=== PATIENT | male | born 1960 | race Caucasian/White ===

== ENCOUNTER 2017-06-20 13:24 | Emergency (ER) | payer OTHER, SELFPAY ==
[2017-06-20 14:06] VITALS: BP 135/81; PULSE 109; RESP 20; TEMP 36.8; O2SAT 97; BMI 34.2
--- NOTE | 2017-06-20 14:30 | HMH.EDUTC ---
[facility] [place] Clinical Impression: Muscle spasm Low back pain Qualifiers: Chronicity: unspecified Back pain laterality: right Sciatica presence: unspecified whether sciatica present Qualified Code(s): M54.5 - Low back pain Disposition: Home, Self-Care Condition on Discharge: Good Instructions: DI for Chronic Pain -- Adult Additional Instructions: Follow up with family doctor in 24-48 hours if no improvement or worsening of symptoms REturn if needed Take medication as prescribed Straight to ER if any life threatening symptoms Prescriptions: Cyclobenzaprine HCl [Flexeril 10mg tablet] 10 mg PO TID PRN #20 tab PRN Reason: Muscle Spasm Etodolac [Etodolac 200mg Cap] 200 mg PO Q6 PRN #20 cap PRN Reason: Moderate Pain Referrals: Branden Alexandre MD [Primary Care Provider] - As needed (in 24-48 hours if no improvement or worsening of symptoms Follow up on Friday) Forms: Work/School Release Time of Disposition: 15:46 Medical Decision Making - Medical Records Medical records reviewed: Yes: I reviewed the patient's medical records. - Venkat Inquiry Pt receiving controlled substance: No Venkat was queried for this patient: No Vital Signs: 06/20/17 14:06 Temperature 98.2 F Temperature Source Temporal Artery Scan Pulse Rate [Right Brachial] 109 H Respiratory Rate 20 Blood Pressure [Right Arm] 135/81 Blood Pressure Mean [Right Arm] 99 Blood Pressure Source [Right Arm] Automatic Cuff Blood Pressure Position [Right Arm] Sitting 02 Sat by Pulse Oximetry 97 Oxygen Delivery Method Room Air Orders (Tests/Meds): ED MEDICATIONS Discontinued Medications Generic Name Dose Route Start Last Admin Trade Name Freq PRN Reason Stop Dose Admin Ketorolac Tromethamine 60 mg 06/20/17 14:42 06/20/17 14:59 Toradol 60mg/2ml Vial IM 06/20/17 14:43 60 mg ONCE ONE Administration Methylprednisolone Sodium Succinate 125 mg 06/20/17 14:42 06/20/17 14:59 Solu-Medrol 125mg/2ml Vial IM 06/20/17 14:43 125 mg ONCE ONE Administration - Radiology Data #1 Image Reviewed: Yes I have reviewed radiologist's interpretation Prominent multilevel degenerative changes of the lower thoracic and lumbar spine along with findings of mild muscle spasm - Reevaluation(s) Time: 14:44 Reevaluation #1: Medication Tordol discussed with Pharmacy ([facility]) [facility] [place] - General Stated complaint: Back spams Time Seen by Provider: 06/20/17 14:30 Mode of Arrival: Family Vehicle Source of Information: Patient Limitations: No Limitations Description of Symptoms (Recalled from Triage Doc. by RN): c/o back pain on right side x 1 month but alot worse since this am HEENT Symptoms (Recalled from RN notes): No Resp Symptoms (Recalled from RN notes): No Skin Symptoms (Recalled from RN notes): No MS Symptoms (Recalled from RN notes): Yes Functional Status (Recalled from RN notes): n/a - History of Present Illness Provider Complaint: Patient state that he has back problems State that about a month ago he slipped on ice and terry his back State that he has been having pain on and off ever since States that this morning his dog made a mess in the floor and he bent over to clean it up and he felt his back pull. States that ever since he has been having muscle spasms in his lower back area so he came in to get seen - Related Data Home Medications Medication Instructions Recorded Confirmed Aspirin [Aspir 81] 81 mg PO DAILY 06/20/17 06/20/17 Finasteride [Proscar 5mg Tablet] 5 mg PO DAILY 06/20/17 06/20/17 Lisinopril [Lisinopril 10mg Tab] 10 mg PO DAILY 06/20/17 06/20/17 Terazosin HCl [Hytrin 5mg Capsule] 5 mg PO DAILY 06/20/17 06/20/17 Previous Rx's Medication Instructions Recorded Cyclobenzaprine HCl [Flexeril 10mg 10 mg PO TID PRN #20 tab 06/20/17 tablet] Etodolac [Etodolac 200mg Cap] 200 mg PO Q6 PRN #20 cap 06/20/17 Allergies Allergy/AdvReac Type Severity Reaction Status Date / Jason
--- NOTE | 2017-06-20 14:37 | ED_ITS ---
[facility] [place]: Muscle spasm Low back pain Qualifiers: Chronicity: unspecified Back pain laterality: right Sciatica presence: unspecified whether sciatica present Qualified Code(s): M54.5 - Low back pain Disposition: Home, Self-Care Condition on Discharge: Good Instructions: DI for Chronic Pain -- Adult Additional Instructions: Follow up with family doctor in 24-48 hours if no improvement or worsening of symptoms REturn if needed Take medication as prescribed Straight to ER if any life threatening symptoms Prescriptions: Cyclobenzaprine HCl [Flexeril 10mg tablet] 10 mg PO TID PRN #20 tab PRN Reason: Muscle Spasm Etodolac [Etodolac 200mg Cap] 200 mg PO Q6 PRN #20 cap PRN Reason: Moderate Pain Referrals: Branden Alexandre MD [Primary Care Provider] - As needed (in 24-48 hours if no improvement or worsening of symptoms Follow up on Friday) Forms: Work/School Release Time of Disposition: 15:46 Medical Decision Making - Medical Records Medical records reviewed: Yes: I reviewed the patient's medical records. - Venkat Inquiry Pt receiving controlled substance: No Venkat was queried for this patient: No Vital Signs: 06/20/17 14:06 Temperature 98.2 F Temperature Source Temporal Artery Scan Pulse Rate [Right Brachial] 109 H Respiratory Rate 20 Blood Pressure [Right Arm] 135/81 Blood Pressure Mean [Right Arm] 99 Blood Pressure Source [Right Arm] Automatic Cuff Blood Pressure Position [Right Arm] Sitting 02 Sat by Pulse Oximetry 97 Oxygen Delivery Method Room Air Orders (Tests/Meds): ED MEDICATIONS Discontinued Medications Generic Name Dose Route Start Last Admin Trade Name Freq PRN Reason Stop Dose Admin Ketorolac Tromethamine 60 mg 06/20/17 14:42 06/20/17 14:59 Toradol 60mg/2ml Vial IM 06/20/17 14:43 60 mg ONCE ONE Administration Methylprednisolone Sodium Succinate 125 mg 06/20/17 14:42 06/20/17 14:59 Solu-Medrol 125mg/2ml Vial IM 06/20/17 14:43 125 mg ONCE ONE Administration - Radiology Data #1 Image Reviewed: Yes I have reviewed radiologist's interpretation Prominent multilevel degenerative changes of the lower thoracic and lumbar spine along with findings of mild muscle spasm - Reevaluation(s) Time: 14:44 Reevaluation #1: Medication Tordol discussed with Pharmacy ([facility]) [facility] [place] General Stated complaint: Back spams Time Seen by Provider: 06/20/17 14:30 Mode of Arrival: Family Vehicle Source of Information: Patient Limitations: No Limitations Description of Symptoms (Recalled from Triage Doc. by RN): c/o back pain on right side x 1 month but alot worse since this am HEENT Symptoms (Recalled from RN notes): No Resp Symptoms (Recalled from RN notes): No Skin Symptoms (Recalled from RN notes): No MS Symptoms (Recalled from RN notes): Yes Functional Status (Recalled from RN notes): n/a - History of Present Illness Provider Complaint: Patient state that he has back problems State that about a month ago he slipped on ice and terry his back State that he has been having pain on and off ever since States that this morning his dog made a mess in the floor and he bent over to clean it up and he felt his back pull. States that ever since he has been having muscle spasms in his lower back area so he came in to get seen - Related D
--- NOTE | 2017-06-20 14:37 | XR_ITS ---
XR lumbar spine 2-3V COMPARISON: None HISTORY: Low back pain TECHNIQUE: AP lateral and oblique views and spot view lumbosacral junction FINDINGS: There is straightening of normal curvature. There is prominent multilevel degenerative changes with anterior ossific spurring most prominent at the T 1011 and T11-12 levels thoracic spine. There is disc space narrowing at L3-4 and L4-5 levels of the lumbar spine with prominent anterior ossific spurring at the L4-5 level. There are hypertrophic facet changes at L4-5 and L5-S1 levels. There is no pars defect. The SI joints per normal except for a small focal sclerotic lesion left iliac bone on the iliac side of the SI joint probably a bone island. IMPRESSION: Prominent multilevel degenerative changes of the lower thoracic and lumbar spine along with findings of mild muscle spasm
[2017-06-20 15:55] VITALS: BP 132/86; PULSE 100; RESP 20; TEMP 36.6; O2SAT 97
== END 2017-06-20 15:57 | disposition home or self-care (01) ==
PROVIDERS: Emergency Provider Nurse Practitioner; Family Provider Family Medicine; PCP Family Medicine
DX: M62.838 Other muscle spasm (principal); M54.5 Low back pain; Z79.82 Long term (current) use of aspirin; I10 Essential (primary) hypertension
CPT/HCPCS: 72100; 96372; 99202

== ENCOUNTER 2017-07-24 10:30 | Outpatient (RCR) | payer OTHER, SELFPAY ==
--- NOTE | 2017-06-26 10:10 | HMH.PTOPEV ---
Rehab Outpatient Evaluation Rehab OP Evaluation Start: 06/26/17 09:34 Freq: Status: Active Protocol: Document 06/26/17 09:34 MECHE (Rec: 06/26/17 10:10 MECHE [id number]) Electronically Signed By Tristin Langford, PT 06/26/17 09:34 Outpatient Therapy Subjective History Subjective History Pt presents w/ acute onset L sided LBP beginning on 06/20/17. Pt reports insidious onset with pain radiating from L sided low back to L thigh area . Pt reports h/o similiar episodes, and gained relief with traction. Chief Complaint Pain Spasms Stiff Symptom Type Ache Throb Sharp Dull Symptoms Relieved By Rest/Positioning Heat Prescription Meds Symptoms Aggravated By Sitting Twisting Lifting Prior Functional Limitations None Current Functional Limitations Lifting Driving Sitting Bending/Stooping Symptom Description Constant but Variable Level of pain today (0-10) 3 Pain scale - at its best (0-10) 3 Pain scale - at its worst (0-10) 6 Lumbopelvic Eval Posture Thoracic Spine Posture Standing Position Neutral Lumbar Spine Posture Standing Position Flattened Assistive device Assistive Devices None / NA Gait Observation General Gait Pattern Observation Antalgic Gait Palapation tenderness left lumbar spinal tenderness Yes: 3/4 paraspinal tenderness Yes: 3/4 Lumbar/Sacral Palpation Findings Tenderness Accessory Movement T-spine Vertebrae Accessory Movements [place] that [place]it Symptoms L3 bilateral L4 bilateral L5 bilateral Range of Motion Lumbar Spine Active Flexion Range of 0-30 Motion (degrees) Lumbar Spine Active Extension Range of 0-15 Motion (degrees) Left Lumbar Spine Lateral Flexion Active 0-5 Range of Motion (degrees) Right Lumbar Spine Lateral Flexion 0-5 Active Range of Motion (degrees) Lumbar Spine ROM Limitations Pain Manual Muscle Test Bilateral Knee Extension Strength Grade 5 Normal Knee Flexion Strength Grade 5 Normal Hip Flexion Strength Grade 4 Good Extensor Halluc
== END 2017-07-24 10:31 | disposition home or self-care (01) ==
LOC: PT 10:30
PROVIDERS: Family Provider Family Medicine; PCP Family Medicine; Visit Provider Family Medicine
DX: S39.012A Strain of muscle, fascia and tendon of lower back, initial encounter (principal)
CPT/HCPCS: 97010; 97012; 97014; 97035; G0283

== ENCOUNTER → 2017-11-06 10:20 | Outpatient (CLI) | payer BC, SELFPAY ==
[2017-11-06 12:36] LABS: Prostate Specific Ag, Diagnost 1.87 ng/mL (0.0-4.0)
== END ==
PROVIDERS: Visit Provider Urology
DX: N40.0 Benign prostatic hyperplasia without lower urinary tract symptoms (principal)
CPT/HCPCS: 36415; 84153

== ENCOUNTER 2019-09-01 11:08 | Observation (INO) | payer BC, SELFPAY ==
[2019-09-01 11:42] VITALS: BP 127/76; RESP 20; TEMP 36.6; O2SAT 99; BMI 36.2
--- NOTE | 2019-09-01 11:43 | HMH.PHAINT ---
MEDICATION RECONCILIATION COMPLETED ON PATIENT USING EXTERNAL FILL HISTORY FROM PHARMACY AND LIST FROM MD OFFICE. -ELIDIA RIGGINSD
--- NOTE | 2019-09-01 12:35 | CT_ITS ---
PROCEDURE: CT ABDOMEN PELVIS W CON CLINICAL INDICATION: abdominal pain Right lower quadrant pain with nausea and vomiting COMPARISON: No exams were available for comparison TECHNIQUE: IV Contrast: 75ML OPTIRAY 350 Oral Contrast 20ml Gastroview Axial images obtained with sagittal and coronal reformats. All CT scans at the facility use one or more dose reduction, viz: automated exposure control, ma/kV adjustment per patient size (including targeted exams where dose is matched to indication, i.e. head), or iterative reconstruction technique. FINDINGS: LOWER THORAX: Lung bases are clear. There is some minimal calcification of the aortic valve. ABDOMEN & PELVIS: The liver, spleen, adrenal glands, and pancreas have an unremarkable appearance. No renal or ureteral calculi. There is an exophytic isodense the projecting off the superior pole of the left kidney. This is approximately 16 mm. The density is indeterminate. Nonemergent ultrasound may be of further value to determine if this is cystic or solid. The appendix is not clearly delineated. There is no evidence to suggest appendicitis. The colon is thickened beginning abruptly in the proximal ascending colon involving the ascending, transverse, descending colon, and sigmoid colon consistent with colitis. There are few diverticula within the colon but no evidence of diverticulitis. The prostate is enlarged at 5.8 by 6.4 cm. There are degenerative changes of the hips and lumbar spine. A sclerotic focus is present in the left ilium posteriorly nonspecific. IMPRESSION: 1. Moderate thickening of the colon as described above consistent with colitis 2. Indeterminate left adrenal nodule. Nonemergent ultrasound initially suggested further evaluation. 3. Enlarged prostate Dictated by: Jens Riggs MD 09/01/2019 16:10 Electronically signed by Jens Riggs MD in [place] 09/01/2019 16:10
--- NOTE | 2019-09-01 12:37 | HMH.HP ---
*Chief complaint: abdominal pain *History of present illness: Mr. Franco Bernardo is a 58-year-old male with a history of hypertension and prostate issues who presented to the office [facility] this a.m. complaining of lower abdominal pain. He states he was at work, went home, and then had some nausea and vomiting, with increasing abdominal pain. He thus presented to the office. With evaluation in the office he was noted to be afebrile with a blood pressure of 122/78. Physical assessment revealed a tender right lower quadrant without guarding. Abdomen was soft and he had positive bowel sounds. Urine showed a trace of blood and was otherwise negative. CBC showed a white blood cell count of 10,000 with a hemoglobin of 13.9 hematocrit of 40.5, granulocytes of 86.8% lymphocytes of 10.2%. Initially he was to go to radiology for CT scan to rule out appendicitis and kidney stone. His nausea progressed and he was given Zofran 4 mg IM. He appeared pale and extremely uncomfortable. He was assessed by Dr. Tovar as well. He was then admitted for further evaluation and treatment and will have a CT scan of his abdomen. Patient denies any chest pain or upper respiratory symptoms. He has had a diminished urinary output since this morning. He does have some shortness of breath with the pain. He has been seen by urology in the past for prostrate enlargement and elevated PSA. Biopsies were all negative. He has no previous history of kidney stones or surgeries. [facility] History Medical History: Reports:: Hyperlipidemia, Hypertension Denies:: Cancer, Diabetes Mellitus Type 1, Diabetes Mellitus Type 2, Internal Pacemaker, MRSA *Have you ever received a pneumonia vaccine?: No *Have you received a flu vaccine this season?: Yes Other Medical History: Reports: Arthritis Other Surgeries: No: Pacemaker Amputation: No Fractures: Yes - *Social History Educational Level: Completed High School Smoking Status: Never smoker Alcohol Intake: never *Occupational Status:: employed Housing: house Household Members: spouse *Travel in the last 8 weeks: None Family Hx:: Cancer, Diabetes, Stroke, Alcoholism Review of Systems - Constitutional Denies fever(s) - ENT Denies ear pain, Denies headache(s), Denies sore throat - *Cardiovascular Reports shortness of breath, Denies chest pain - *Respiratory Denies chest congestion, Denies cough Comments: shortness of breath with the pain - *Gastrointestinal Reports abdominal pain, Reports nausea, Reports vomiting, Denies bloating, Denies change in bowel habits, Denies vomiting blood - *Genitourinary Reports difficulty urinating, Reports blood in urine, Reports decreased urination (dribbling), Denies painful urination - *Musculoskeletal Denies abnormal walking, Denies joint pain, Denies body aches - *Neurologic Denies frequent falls, Denies headache(s) Meds Home Medications Medication Instructions Recorded Confirmed Type Aspirin [Aspir 81] 81 mg PO DAILY 06/20/17 09/01/19 History Finasteride [Proscar 5mg Tablet] 5 mg PO DAILY 06/20/17 09/01/19 History Terazosin HCl [Hytrin 5mg Capsule] 5 mg PO HS 06/20/17 09/01/19 History lisinopriL [Lisinopril 10mg Tab] 10 mg PO DAILY 06/20/17 09/01/19 History Allergies Allergy/AdvReac Type Severity Reaction Status Date / Time No Known Allergies Allergy Verified 11/05/18 11:29 Exam Vital signs and Labs for Last 24 Hours: Temp Resp BP Pulse Ox 97.8 F 20 127/76 99 09/01/19 11:42 09/01/19 11:42 09/01/19 11:42 09/01/19 11:42 I & O for Last 24 hours: Intake & Output 08/30/19 08/31/19 09/01/19 09/02/19 11:59 11:59 11:59 11:59 Weight 282 lb 5 oz - Constitutional Comments: appears to be uncomfortable with abdominal pain and nausea - *Routine HEENT Exam Head: Present: normocephalic, atraumatic Eye: Present: PERRL. Absent: conjunctival icterus, scleral injection ENT: Present: mucous membranes moist - *Routine
[2019-09-01 13:23] LABS: Chloride 101 mmol/L (98-107); Sodium 134 mmol/L (136-145)
[2019-09-01 13:24] LABS: Basophils % 0.2 % (0.1-2.0); Eosinophils % 0.1 % (0.1-12.0); Hematocrit 41.9 % (42.0-52.0); Hemoglobin 14.3 g/dL (14.1-18.0); Lymphocytes # 0.7 K/mm3 (0.7-4.5); Lymphocytes % 6.9 % (10-50); Mean Corpuscular HGB Conc 34.1 g/dL (31.8-35.4); Mean Corpuscular Hemoglobin 30.5 pg (27.0-31.2); Mean Corpuscular Volume 89.3 fl (80-94); Mean Platelet Volume 8.6 fl (7.4-10.4); Monocytes # 0.3 K/mm3 (0.1-1.0); Monocytes % 2.6 % (1.7-9.3); Neutrophils # 9.7 K/mm3 (1.8-7.8); Neutrophils % 90.2 % (37.0-80.0); Platelet Count 177 K/mm3 (142-424); Red Blood Count 4.69 M/mm3 (4.60-6.20); White Blood Count 10.7 K/mm3 (4.8-10.8)
[2019-09-01 13:25] LABS: Blood Urea Nitrogen 21 mg/dl (9-20); Creatinine Clearance Estimated 206 mL/min (50-200); Estimated Glomerular Filt Rate 115 ml/min (>60); GFR (African American) 140 ML/MIN (>60)
[2019-09-01 13:26] LABS: Alanine Aminotransferase 39 U/L (12-78); Albumin Level 4.2 g/dl (3.5-5.0); Albumin/Globulin Ratio 1.6 (1.1-1.8); Alkaline Phosphatase 59 U/L (38-126); Aspartate Amino Transferase 42 U/L (17-59); Bilirubin,Total 0.7 mg/dl (0.2-1.3); Carbon Dioxide 27 mmol/L (22.0-30.0); Globulin 2.6 g/dL (1.3-3.2); Glucose 149 mg/dl (74-100); MANUAL DIFFERENTIAL MANUAL DIFFERENTIAL (MANUAL DIFF); Total Protein,Serum 6.8 g/dl (6.3-8.2)
[2019-09-01 13:44] LABS: Lymphocytes % 8 % (10-50); Monocytes % 2 % (2-9); Neutrophils % 90 % (42-76); Platelet Estimate Normal; RBC Morphology Normal; Total Cells Counted 100
--- NOTE | 2019-09-01 15:38 | HMH.PHAVTE ---
[facility] Pharmacy VTE Monitoring - Patient Demographics Admission date: 09/01/19 Report Date: 09/01/19 Time: 15:38 Allergies/Adverse Reactions: Patient Allergies No Known Allergies Allergy (Verified 11/05/18 11:29) Height: 1.88 m Weight: 128.055 kg Patient Problems: Current Active Problems Abdominal pain (Acute) Nausea and vomiting (Acute) Hypertension (Chronic) Enlarged prostate (Chronic) - VTE Risk Labs: VTE Related Lab Results Hgb 14.3 g/dL (14.1-18.0) 09/01/19 11:45 Hct 41.9 % (42.0-52.0) L 09/01/19 11:45 Plt Count 177 K/mm3 (142-424) 09/01/19 11:45 BUN 21 mg/dl (9-20) H 09/01/19 11:45 Creatinine 0.70 mg/dl (0.66-1.25) 09/01/19 11:45 Estimated Creat Clear 206 mL/min (50-200) 09/01/19 11:45 Was VTE Risk Assessment Performed: Yes VTE Score: 2 VTE Risk Level: Very Low Risk - Prophylaxis VTE Prophylaxis Ordered?: Yes Types of VTE Prophylaxis: TEDS Knee High Location of Applied Device: Bilateral Lower Extremeties - VTE Diagnosis Confirmed Treatment or plan recommended: Continue Current Treatment
[2019-09-01 15:53] VITALS: BP 133/79; PULSE 62; RESP 18; TEMP 36.8; O2SAT 98
--- NOTE | 2019-09-01 17:29 | PC.NURSE ---
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 IV is infusing in LAC, no signs of infiltration noted, at bedside, vss, no s/s of distress noted, will continue to monitor.
--- NOTE | 2019-09-01 19:12 | PC.NURSE ---
report given to siddhartha
[2019-09-01 20:00] VITALS: BP 139/80; PULSE 63; RESP 17; TEMP 36.6; O2SAT 94
[2019-09-02 04:00] VITALS: BP 127/68; PULSE 94; RESP 16; TEMP 36.8; O2SAT 95
[2019-09-02 07:26] VITALS: BP 121/68; PULSE 69; RESP 16; TEMP 36.8; O2SAT 96
[2019-09-02 07:56] VITALS: BMI 36.7
--- NOTE | 2019-09-02 08:37 | HMH.ACPN2 ---
Internal Medicine - PN: Subj *Date: 09/02/19 *Time: 08:37 Interval history: Patient is feeling better today. His abdominal pain has improved. He did have a loose stool this morning. He states he had some dysuria the first time he urinated, but this has resolved. He was able to rest off and on throughout the night. He still got nauseated trying to eat breakfast this morning. Exam Vital signs and Labs for Last 24 Hours: Temp Pulse Resp BP Pulse Ox 98.2 F 69 16 121/68 96 09/02/19 07:26 09/02/19 07:26 09/02/19 07:26 09/02/19 07:26 09/02/19 07:26 Laboratory Results - last 24 hr 09/01/19 11:45: WBC 10.7, RBC 4.69, Hgb 14.3, Hct 41.9 L, MCV 89.3, MCH 30.5, MCHC 34.1, RDW 13.0, Plt Count 177, MPV 8.6, Neut % (Auto) 90.2 H, Lymph % (Auto) 6.9 L, Harper % (Auto) 2.6, Eos % (Auto) 0.1, Baso % (Auto) 0.2, Neut # (Auto) 9.7 H, Lymph # (Auto) 0.7, Harper # (Auto) 0.3, Eos # (Auto) 0.0, Baso # (Auto) 0.0, Total Counted 100, Neutrophils % (Manual) 90 H, Lymphocytes % (Manual) 8 L, Monocytes % (Manual) 2, Platelet Estimate Normal, RBC Morphology Normal 09/01/19 11:45: Sodium 134 L, Potassium 4.0, Chloride 101, Carbon Dioxide 27, Anion Gap 10.0, BUN 21 H, Creatinine 0.70, Estimated Creat Clear 206, Estimated GFR 115, Est GFR ( Amer) 140, Glucose 149 H, Calcium 9.0, Total Bilirubin 0.7, AST 42, ALT 39, Alkaline Phosphatase 59, Total Protein 6.8, Albumin 4.2, Globulin 2.6, Albumin/Globulin Ratio 1.6 I & O for Last 24 hours: Intake & Output 08/30/19 08/31/19 09/01/19 09/02/19 11:59 11:59 11:59 11:59 Intake Total 2644 / 2644 Output Total 1100 / 1100 Balance 1544 / 1544 Weight 282 lb 5 oz 286 lb 7 oz Radiology Reports for the Last 24 Hours: Abdominal CT 1. Moderate thickening of the colon as described above consistent with colitis 2. Indeterminate left adrenal nodule. Nonemergent ultrasound initially suggested further evaluation. 3. Enlarged prostate - Constitutional no acute distress - *Routine Respiratory Exam Present: CTA bilaterally - *Routine Cardiovascular Exam Present: RRR - *Routine Abdominal Exam Present: soft, normoactive bowel sounds. Absent: tenderness - *Routine Extremities Exam Absent: cyanosis, clubbing, edema - *Routine Skin Exam Present: warm. Absent: rash - *Routine Neurological Exam Present: alert, oriented X3 Assessment and Plan (1) Colitis Current visit: Yes Status: Acute Category: Medical Code(s): K52.9 - Noninfective gastroenteritis and colitis, unspecified (2) Abdominal pain Current visit: Yes Status: Acute Category: Medical Code(s): R10.9 - Unspecified abdominal pain (3) Nausea and vomiting Current visit: Yes Status: Acute Category: Medical Code(s): R11.2 - Nausea with vomiting, unspecified (4) Hypertension Current visit: Yes Status: Chronic Category: Medical Code(s): I10 - Essential (primary) hypertension (5) Enlarged prostate Current visit: Yes Status: Chronic Category: Medical Code(s): N40.0 - Benign prostatic hyperplasia without lower urinary tract symptoms (6) Adrenal nodule Current visit: Yes Status: Acute Category: Medical Code(s): E27.8 - Other specified disorders of adrenal gland - Assessment and plan all Dx Assessment and Plan for all problems:: Patient was started on IV antibiotics yesterday after CT showed findings of colitis. He is improving. We will continue IV antibiotics. Will discuss further care with Dr. Tovar.
[2019-09-02 15:05] VITALS: BP 132/81; PULSE 82; RESP 18; TEMP 36.4; O2SAT 99
[2019-09-02 15:48] LABS: Adenovirus F 40/41, stool Not Detected (NotDetected); Astrovirus Not Detected (NotDetected); Campylobacter Not Detected (NotDetected); Clostridium Difficile A/B, PCR Not Detected (NotDetected); Cryptosporidium Not Detected (NotDetected); Cyclospora Cayetanesis Not Detected (NotDetected); Entamoeba histolytica Not Detected (NotDetected); Enteroaggregative E coli Not Detected (NotDetected); Enteropathogenic E coli Not Detected (NotDetected); Enterotoxigenic E coli Not Detected (NotDetected); Giardia lamblia Not Detected (NotDetected); Norovirus Not Detected (NotDetected); Plesimonas Shigalloides, PCR Not Detected (NotDetected); Rotavirus A Not Detected (NotDetected); Salmonella, PCR Not Detected (NotDetected); Sapovirus Not Detected (NotDetected); Shiga-like toxin E coli Not Detected (NotDetected); Shigella Enterovasive E coli Not Detected (NotDetected); Vibrio Cholerae Not Detected (NotDetected); Vibrio, PCR Not Detected (NotDetected); Yersinia Entercolitica, PCR Not Detected (NotDetected)
--- NOTE | 2019-09-02 18:07 | PC.NURSE ---
Patient has not complained of pain for duration of shift, has showered and performed most ADL's with minimal assistance, patient VSS, able to ambulate as needed, patient did complain of some dizziness and nausea early in the day but said it was relieved by position changes. has remained at bedside, patient has not shown signs of distress. Will contiune to monitor
[2019-09-02 19:56] VITALS: BP 114/68; PULSE 75; RESP 16; TEMP 36.6; O2SAT 99
[2019-09-02 21:19] VITALS: O2SAT 99
[2019-09-03] VITALS (17 sets, daily range): BP systolic 106–149; BP diastolic 58–97; PULSE 61–86; RESP 14–20; TEMP 36.6–37.1; O2SAT 92–100; BMI 33.3
--- NOTE | 2019-09-03 03:46 | PC.NURSE ---
NO ACUTE CHANGES FROM PREVIOUS ASSESSMENT.PT HAS RESTED WELL DURING THE NIGHT,HAS NOT REQUIRED ANY PAIN MEDICINES,IV INFUSING WITHOUT DIFF.WILL CONTINUE TO MONITOR
--- NOTE | 2019-09-03 08:25 | HMH.ACPN2 ---
Internal Medicine - PN: Subj *Date: 09/03/19 *Time: 08:25 Interval history: Patient states he feels much better today. His abdominal pain has resolved and he has been up moving around his room. He tolerated a diet without any nausea. He is still having some loose stools, but is anxious to go home. Exam Vital signs and Labs for Last 24 Hours: Temp Pulse Resp BP Pulse Ox 97.8 F 77 16 139/97 H 95 09/03/19 03:59 09/03/19 03:59 09/03/19 03:59 09/03/19 03:59 09/03/19 03:59 Laboratory Results - last 24 hr 09/02/19 15:43: Stl Aeromonas (PCR) Not detected, Stl C. cayetanensis PCR Not detected, Stool Rotavirus (PCR) Not detected, Stl Adenov F 40/41 PCR Not detected, Stool Astrovirus (PCR) Not detected, Stool Campylobacter PCR Not detected, Stl C.difficile Tox PCR Not detected, Stool Cryptosporidium PCR Not detected, Stl E.coli Shiga Tox PCR Not detected, Stool E coli O157 PCR Not detected, Stl Enterotoxigenic E PCR Not detected, Stool EPEC (PCR) Not detected, Stool EAEC (PCR) Not detected, Stl E. histolytica PCR Not detected, Stool Giardia Lamblia PCR Not detected, Stool Salmonella PCR Not detected, Stool Sapovirus (PCR) Not detected, Stl P. shigelloides PCR Not detected, Stl Shigella/EIEC PCR Not detected, St Y.enterocolitica PCR Not detected, Stool Vibrio (PCR) Not detected, Stl Vibrio cholerae PCR Not detected, Stl Norovirus GI/GII PCR Not detected I & O for Last 24 hours: Intake & Output 08/31/19 09/01/19 09/02/19 09/03/19 11:59 11:59 11:59 11:59 Intake Total 2644 / 2644 3592 / 3592 Output Total 1100 / 1100 Balance 1544 / 1544 3592 / 3592 Weight 282 lb 5 oz 286 lb 7 oz 259 lb 15.999 oz - Constitutional no acute distress - *Routine Respiratory Exam Present: CTA bilaterally - *Routine Cardiovascular Exam Present: RRR - *Routine Abdominal Exam Present: soft, normoactive bowel sounds. Absent: tenderness - *Routine Extremities Exam Absent: cyanosis, clubbing, edema - *Routine Skin Exam Present: warm. Absent: rash - *Routine Neurological Exam Present: alert, oriented X3 Assessment and Plan (1) Colitis Current visit: Yes Status: Acute Category: Medical Code(s): K52.9 - Noninfective gastroenteritis and colitis, unspecified (2) Abdominal pain Current visit: Yes Status: Acute Category: Medical Code(s): R10.9 - Unspecified abdominal pain (3) Nausea and vomiting Current visit: Yes Status: Acute Category: Medical Code(s): R11.2 - Nausea with vomiting, unspecified (4) Hypertension Current visit: Yes Status: Chronic Category: Medical Code(s): I10 - Essential (primary) hypertension (5) Enlarged prostate Current visit: Yes Status: Chronic Category: Medical Code(s): N40.0 - Benign prostatic hyperplasia without lower urinary tract symptoms (6) Adrenal nodule Current visit: Yes Status: Acute Category: Medical Code(s): E27.8 - Other specified disorders of adrenal gland - Assessment and plan all Dx Assessment and Plan for all problems:: Diarrhea panel was negative. Possible discharge home today. GI has been consulted to see patient before discharge.
[2019-09-03 08:43] LABS: Basophils % 0.4 % (0.1-2.0); Eosinophils % 0.6 % (0.1-12.0); Hematocrit 39.4 % (42.0-52.0); Hemoglobin 13.3 g/dL (14.1-18.0); Lymphocytes # 1.3 K/mm3 (0.7-4.5); Lymphocytes % 23.8 % (10-50); Mean Corpuscular HGB Conc 33.8 g/dL (31.8-35.4); Mean Corpuscular Hemoglobin 30.8 pg (27.0-31.2); Mean Corpuscular Volume 90.9 fl (80-94); Mean Platelet Volume 7.9 fl (7.4-10.4); Monocytes # 0.2 K/mm3 (0.1-1.0); Monocytes % 3.9 % (1.7-9.3); Neutrophils # 3.9 K/mm3 (1.8-7.8); Neutrophils % 71.2 % (37.0-80.0); Platelet Count 169 K/mm3 (142-424); Red Blood Count 4.33 M/mm3 (4.60-6.20); Red Cell Distribution Width 13.1 % (11.5-17.5); White Blood Count 5.5 K/mm3 (4.8-10.8)
[2019-09-03 08:59] LABS: Chloride 105 mmol/L (98-107); Potassium 3.8 mmoL/L (3.5-5.1); Sodium 137 mmol/L (136-145)
[2019-09-03 09:02] LABS: Anion Gap 7.8 mEq/L (5-15); Blood Urea Nitrogen 16 mg/dl (9-20); Calcium 8.1 mg/dl (8.4-10.2); Carbon Dioxide 28 mmol/L (22.0-30.0); Creatinine Clearance Estimated 147 mL/min (50-200); Estimated Glomerular Filt Rate 86 ml/min (>60); GFR (African American) 105 ML/MIN (>60); Glucose 131 mg/dl (74-100)
--- NOTE | 2019-09-03 11:06 | PC.NURSE ---
received call from preop saying to only give 1 fleets enema
--- NOTE | 2019-09-03 13:39 | HMH.ANESCL ---
[facility] Anesthesia Checklist - Patient Identification Patient Identification: Arm Band, Verbal (Name & ) - Structural Data Admitted From: Inpatient Planned Operative Procedure/s: Flexible sigmoidoscopy Consent for Planned Operative Procedure(s) Verified: Yes Verified Documents: Surgical Consent, History and Physical - NPO Status Verified Time NPO: 00:00 - Chart Verification Results Verified: CBC, BMP - Additional verifications Anesthesia Reactions: No - Airway Assessment C-Spine Mobility Assessed: Yes TMJ Mobility Assessed: Yes Dentition: Poor Dentition (Missing teeth) - Neurological Assessment Level of Consciousness: Awake, Alert, Appropriate, Follows Commands Hx Seizures: No Numbness or tingling in extremities: No - Anesthesia Plan Anesthesia Risk discussed: Yes Anesthesia Plan: Verified ASA Class: III Anesthesia Type: MAC [facility] History I have reviewed the patient's past medical history: Yes Medical History: Reports:: Hyperlipidemia, Hypertension Denies:: Cancer, Diabetes Mellitus Type 1, Diabetes Mellitus Type 2, Internal Pacemaker, MRSA *Have you ever received a pneumonia vaccine?: No *Have you received a flu vaccine this season?: Yes Other Medical History: Reports: Arthritis Anesthesia experience/problems:: none Other Surgeries: Yes: Colonoscopy. No: Pacemaker Amputation: No Fractures: Yes Comment: Right thumb pinning - *Social History Educational Level: Completed High School Smoking Status: Never smoker Alcohol Intake: never Substance Use Type: denies use *Occupational Status:: employed Housing: house Household Members: spouse *Travel in the last 8 weeks: None Family Hx:: Cancer, Diabetes, Stroke, Alcoholism
--- NOTE | 2019-09-03 13:46 | HMH.PROC ---
[facility] Procedure Note Procedure Note:: Colonoscopy Procedure Report: Colonoscopy with cold biopsies Endoscopist: Mihir Cruz II, MD Referring physician: Nikunj Tovar MD/Elisabeth GODFREY Date of Procedure: September 03, 2019 Equipment: Olympus 180 variable stiffness pediatric colonoscope Sedation: MAC sedation Indication: Mr. Bernardo is a 58-year-old gentleman who presents with diarrhea and right lower quadrant abdominal pain. He did have a CT scan of the abdomen and pelvis that did show thickening abruptly in the proximal ascending colon involving the ascending, transverse descending and sigmoid consistent with colitis. There were a few diverticuli noted in the colon but no evidence of diverticulitis. The patient had an initial PCR gastrointestinal stool panel that was negative for microbial pathogens. His initial white blood cell count was 10.7/hemoglobin 13.9 and hematocrit 40.5. He had normal liver chemistries. He continues to have some right-sided abdominal discomfort. His last colonoscopy was 4 to 5 years ago. He reports no rectal bleeding or weight loss. Procedure: Prior to the procedure, a history and physical exam was performed, and patient's medications and allergies were reviewed. The risks, benefits and alternatives of the sedation and procedure were discussed with the patient. All questions were answered and informed consent was obtained. The patient was brought to the procedure room. Patient identification and proposed procedure were verified by the physician and the nurse. The patient was placed in a left lateral decubitus position and the scope was passed under direct vision. Throughout the procedure, the patient's blood pressure, pulse, and oxygen saturations were monitored continuously. The colonoscopy was accomplished without difficulty. The patient tolerated the procedure well. Findings: On digital rectal examination there was normal rectal tone. There were no external hemorrhoids. The prostate was 2-3+, smooth and symmetric without nodules. The colonoscope was introduced through the anal canal to the rectum and advanced to the cecum. The appendiceal orifice could not be identified because of brown liquid stool and the valve could be identified but very difficult to intubate the ileum because of the stool and unprepped cecum. Upon withdrawal, there was a diminutive polyp in the ascending and a second diminutive polyp in the descending colon. Both of these were removed via cold biopsy. There was no mucosal abnormalities identified in the cecum/ascending, transverse colon. There were scattered diverticuli throughout the descending and sigmoid colon (LEFT colon). There was some mild mucosal erythema of the sigmoid colon and cold biopsies were taken randomly from the sigmoid colon to rule out colitis. The rectum itself was normal. Upon retroflexion within the rectum there were grade 1 internal hemorrhoids. The preparation was fair throughout with [place] Preparation Score of 6 out of 9. The cecal time was 12 minutes. Impression: 1. Diminutive colonic polyps x2 2. Left-sided diverticulosis 3. Grade 1 internal hemorrhoids Plan: There was no clear evidence of colitis. I do feel that the colon was decompressed. The patient still has some right lower quadrant abdominal pain but does not have fever or elevated white blood cell count. I would begin to advance his diet and follow-up as outpatient as long as symptoms improved. I will have him use dicyclomine/Bentyl. I will follow-up the biopsies.
--- NOTE | 2019-09-03 14:21 | SUR.PHASEII ---
Report called to Ines on Med/Surg floor, transferred to room 214 per hospital bed. Pt ailin procedure well.
--- NOTE | 2019-09-03 16:21 | PC.NURSE ---
Since returning from having sigmoidoscopy pt has done well. No c/o pain. No loose stools since returning from floor. Tolerating low residue diet. Ambulates independently to bathroom w/ no safety concerns. remains at bedside. VSS. Will continue to monitor.
--- NOTE | 2019-09-03 18:58 | PC.NURSE ---
patient has done well no new complaints. vitals have remained stable. rings out as needed. independent in room will continue to monitor.
--- NOTE | 2019-09-03 19:10 | PC.NURSE ---
report given to alberto
--- NOTE | 2019-09-04 03:58 | PC.NURSE ---
PT. HAS NOT HAD A BM THIS SHIFT, ABD REMAINS DISTENDED. PT. HAS NOT C/O N/V/D, SOA, DIZZINESS OR PAIN.
[2019-09-04 04:00] VITALS: BP 126/75; PULSE 77; RESP 18; TEMP 36.4; O2SAT 92
[2019-09-04 05:00] VITALS: BMI 36.7
[2019-09-04 08:00] VITALS: BP 143/78; PULSE 99; RESP 14; TEMP 36.4; O2SAT 96
--- NOTE | 2019-09-04 09:18 | HMH.ACPN2 ---
Internal Medicine - PN: Subj *Date: 09/04/19 *Time: 09:18 Interval history: He is feeling well and anxious to be discharged. Some epigastric tenderness. Ate graham and eggs this AM. Stool is loose. Exam Vital signs and Labs for Last 24 Hours: Temp Pulse Resp BP Pulse Ox 97.6 F 99 H 14 143/78 H 96 09/04/19 08:00 09/04/19 08:00 09/04/19 08:00 09/04/19 08:00 09/04/19 08:00 I & O for Last 24 hours: Intake & Output 09/01/19 09/02/19 09/03/19 09/04/19 11:59 11:59 11:59 11:59 Intake Total 2644 / 2644 4072 / 4072 1800 / 1800 Output Total 1100 / 1100 Balance 1544 / 1544 4072 / 4072 1800 / 1800 Weight 282 lb 5 oz 286 lb 7 oz 259 lb 15.999 oz 286 lb 6 oz - *Routine HEENT Exam Head: Present: normocephalic Eye: Present: PERRL ENT: Present: mucous membranes moist - *Routine Respiratory Exam Present: CTA bilaterally - *Routine Cardiovascular Exam Present: RRR - *Routine Abdominal Exam Present: soft. Absent: tenderness - *Routine Extremities Exam Absent: edema Assessment and Plan (1) Colitis Current visit: Yes Status: Acute Category: Medical Code(s): K52.9 - Noninfective gastroenteritis and colitis, unspecified (2) Abdominal pain Current visit: Yes Status: Acute Category: Medical Code(s): R10.9 - Unspecified abdominal pain (3) Nausea and vomiting Current visit: Yes Status: Acute Category: Medical Code(s): R11.2 - Nausea with vomiting, unspecified (4) Hypertension Current visit: Yes Status: Chronic Category: Medical Code(s): I10 - Essential (primary) hypertension (5) Enlarged prostate Current visit: Yes Status: Chronic Category: Medical Code(s): N40.0 - Benign prostatic hyperplasia without lower urinary tract symptoms (6) Adrenal nodule Current visit: Yes Status: Acute Category: Medical Code(s): E27.8 - Other specified disorders of adrenal gland - Assessment and plan all Dx Assessment and Plan for all problems:: See med list. Added Dicyclomine. Cefdinir for 10 days. Follow-up this week.
--- NOTE | 2019-09-04 09:37 | HMH.PHAINT ---
DISCHARGE COUNSELING COMPLETED.
--- NOTE | 2019-09-04 10:23 | HMH.ACPN ---
Internal Medicine - PN: Subj *Date: 09/04/19 *Time: 10:23 Exam Vital signs and Labs for Last 24 Hours: Temp Pulse Resp BP Pulse Ox 97.6 F 99 H 14 143/78 H 96 09/04/19 08:00 09/04/19 08:00 09/04/19 08:00 09/04/19 08:00 09/04/19 08:00 I & O for Last 24 hours: Intake & Output 09/01/19 09/02/19 09/03/19 09/04/19 23:59 23:59 23:59 23:59 Intake Total 808 / 808 3792 / 3792 2476 / 2476 1440 / 1440 Output Total 600 / 600 500 / 500 Balance 208 / 208 3292 / 3292 2476 / 2476 1440 / 1440 Weight 128.055 kg 129.926 kg 117.934 kg 129.898 kg Assessment and Plan (1) Colitis Current visit: Yes Status: Acute Category: Medical Code(s): K52.9 - Noninfective gastroenteritis and colitis, unspecified (2) Abdominal pain Current visit: Yes Status: Acute Category: Medical Code(s): R10.9 - Unspecified abdominal pain (3) Nausea and vomiting Current visit: Yes Status: Acute Category: Medical Code(s): R11.2 - Nausea with vomiting, unspecified (4) Hypertension Current visit: Yes Status: Chronic Category: Medical Code(s): I10 - Essential (primary) hypertension (5) Enlarged prostate Current visit: Yes Status: Chronic Category: Medical Code(s): N40.0 - Benign prostatic hyperplasia without lower urinary tract symptoms (6) Adrenal nodule Current visit: Yes Status: Acute Category: Medical Code(s): E27.8 - Other specified disorders of adrenal gland The patient's infection will respond to the chosen ABx?: Yes Is the patient receiving the right drug, dose, and route?: Yes Could a more targeted ABx be ordered?: Yes (PATIENT IS BEING DISCHARGED ON CEFDINIR)
--- NOTE | 2019-09-06 14:33 | HMH.DCSUM ---
General - General Admission date:: 09/01/19 Discharge date: 09/04/19 HPI HPI: Mr. Franco Bernardo is a 58-year-old male with a history of hypertension and prostate issues who presented to the office [facility] this a.m. complaining of lower abdominal pain. He states he was at work, went home, and then had some nausea and vomiting, with increasing abdominal pain. He thus presented to the office. With evaluation in the office he was noted to be afebrile with a blood pressure of 122/78. Physical assessment revealed a tender right lower quadrant without guarding. Abdomen was soft and he had positive bowel sounds. Urine showed a trace of blood and was otherwise negative. CBC showed a white blood cell count of 10,000 with a hemoglobin of 13.9 hematocrit of 40.5, granulocytes of 86.8% and lymphocytes of 10.2%. Initially he was to go to radiology for CT scan to rule out appendicitis and kidney stone. His nausea progressed and he was given Zofran 4 mg IM. He appeared pale and extremely uncomfortable. He was assessed by Dr. Tovar as well. He was then admitted for further evaluation and treatment and will have a CT scan of his abdomen upon admission. Patient denies any chest pain or upper respiratory symptoms. He has had a diminished urinary output since this morning. He does have some shortness of breath with the pain. He has been seen by urology in the past for prostrate enlargement and elevated PSA. Biopsies were all negative. He has no previous history of kidney stones or surgeries. Hospital Course Hospital Course: On admission patient had CT of the abdomen/pelvis which showed evidence of colitis and no evidence of appendicitis and no kidney stone. He was started on IV antibiotics, IV fluids, pain medication and anti-emetics after which he did improve. Abdominal pain did slowly resolve. He did develop a diarrhea. Diarrhea panel was negative. He was tolerating his diet without nausea. He was seen by Dr. Cruz who performed a colonoscopy with findings of diminutive colonic polyps x2, left-sided diverticulosis, and grade 1 internal hemorrhoids. He found no clear evidence of a colitis. He noted that the patient still had some right lower quadrant abdominal pain without fever or elevated white blood cell count. He recommended to advance his diet and started him on Bentyl. On 09/04/2019 patient was feeling well and anxious to be discharged. He had some epigastric tenderness. His stool remained loose. He was felt stable to be discharged. On this date he was discharged home in stable and satisfactory condition. He was to continue with the Bentyl and cefdinir for 10 days. He was to follow-up with Dr. Tovar the following week. Other medicines as per medication discharge sheet. He was to continue with his usual diet as tolerated. Objective Vital signs: Temp Pulse Resp BP Pulse Ox 97.6 F 99 H 14 143/78 H 96 09/04/19 08:00 09/04/19 08:00 09/04/19 08:00 09/04/19 08:00 09/04/19 08:00 Narrative: Exam Vital signs and Labs for Last 24 Hours: Temp Pulse Resp BP Pulse Ox 97.6 F 99 H 14 143/78 H 96 09/04/19 08:00 09/04/19 08:00 09/04/19 08:00 09/04/19 08:00 09/04/19 08:00 I & O for Last 24 hours: Intake & Output 09/01/19 09/02/19 09/03/19 09/04/19 11:59 11:59 11:59 11:59 Intake Total 2644 / 2644 4072 / 4072 1800 / 1800 Output Total 1100 / 1100 Balance 1544 / 1544 4072 / 4072 1800 / 1800 Weight 282 lb 5 oz 286 lb 7 oz 259 lb 15.999 oz 286 lb 6 oz - *Routine HEENT Exam Head: Present: normocephalic Eye: Present: PERRL ENT: Present: mucous membranes moist - *Routine Respiratory Exam Present: CTA bilaterally - *Routine Cardiovascular Exam Present: RRR - *Routine Abdominal Exam Present: soft. Absent: tenderness - *Routine Extremities Exam Absent: edema Results Completed studies during hospitalization [Text1]: 09/01/19 11:45: WBC
== END 2019-09-04 10:45 | disposition home or self-care (01) ==
PROVIDERS: Internal Medicine Gastroenterology; Nurse Practitioner Family; Admitting Provider Family Medicine; PCP Family Medicine; Visit Provider Family Medicine
PROC: 0DJD8ZZ Inspection of Lower Intestinal Tract, Via Natural or Artificial Opening Endoscopic (ICD-10-PCS; CPT 45330; principal; 2019-09-03 14:15)
DX: K52.9 Noninfective gastroenteritis and colitis, unspecified (principal); K57.30 Diverticulosis of large intestine without perforation or abscess without bleeding; N40.0 Benign prostatic hyperplasia without lower urinary tract symptoms; I10 Essential (primary) hypertension; D12.2 Benign neoplasm of ascending colon; D12.4 Benign neoplasm of descending colon
CPT/HCPCS: 45380; 36415; 74177; 80048; 80053; 85007; 85025; 87507; G0378; J1335; Q9967

== ENCOUNTER → 2019-11-11 12:14 | Outpatient (CLI) | payer BC, SELFPAY ==
[2019-11-11 14:07] LABS: Prostate Specific Ag Screen 1.9 ng/ml (0.0-4.0)
== END ==
PROVIDERS: Visit Provider Urology
DX: Z12.5 Encounter for screening for malignant neoplasm of prostate (principal)
CPT/HCPCS: 36415; G0103

== ENCOUNTER 2020-09-20 18:50 | Emergency (ER) | payer BC, SELFPAY ==
[2020-09-20] VITALS (7 sets, daily range): BP systolic 116–129; BP diastolic 72–82; PULSE 61–92; RESP 18–20; TEMP 36.9; O2SAT 95–100; BMI 36.9
--- NOTE | 2020-09-20 19:17 | US_ITS ---
PROCEDURE INFORMATION: Exam: US Scrotum Exam date and time: 09/20/2020 7:17 PM Age: 59 years old Clinical indication: Scrotum pain; Patient HX: Testicular pain/swelling TECHNIQUE: Imaging protocol: Real-time ultrasound of the scrotum and contents with color Doppler and image documentation. Spectral waveform analysis of the bilateral testis was not performed by the cardiac cath lab radiology technologist who performed the study. COMPARISON: 1. SCRO US SCROTUM 01/03/2017 10:[address] ABDOMEN PELVIS W CON 09/01/2019 3:32:13 PM No other comparison studies were made available at the time of interpretation. FINDINGS: Right testicle: The right testis measures 3.2 x 4.2 x 3.3 cm. Vascularity of the testis is present based on color Doppler imaging. No sonographic findings to suggest torsion on this study. No testicular mass. Left testicle: The left testis measures 3.1 x 4.8 x 3.9 cm. Vascularity of the testis is present based on color Doppler imaging. No sonographic findings to suggest torsion on this study. No testicular mass. Epididymides: 1.2 cm right epididymal head cyst. The visualized portion of the epididymes appear symmetric in echogenicity otherwise. Scrotum: Bilateral large hydrocele, measuring 10.1 x 6.8 x 7.6 cm on the right and 10.6 x 7.3 x 5.6 cm on the left. Soft tissues: Nonspecific 2.1 x 0.8 cm right inguinal lymph node demonstrating a fatty hilum. IMPRESSION: Bilateral large hydrocele, measuring 10.1 x 6.8 x 7.6 cm on the right and 10.6 x 7.3 x 5.6 cm on the left. Other findings noted above. The interpretation of this study is based on the receipt of a total image number of [id number].
[2020-09-20 19:44] LABS: Basophils % 0.5 % (0.1-2.0); Eosinophils # 0.1 K/mm3 (0.0-0.4); Eosinophils % 0.8 % (0.1-12.0); Hematocrit 40.8 % (42.0-52.0); Hemoglobin 14.2 g/dL (14.1-18.0); Lymphocytes # 1.2 K/mm3 (0.7-4.5); Mean Corpuscular HGB Conc 34.9 g/dL (31.8-35.4); Mean Corpuscular Hemoglobin 29.9 pg (27.0-31.2); Mean Corpuscular Volume 85.7 fl (80-94); Mean Platelet Volume 8.4 fl (7.4-10.4); Monocytes # 0.3 K/mm3 (0.1-1.0); Monocytes % 3.9 % (1.7-9.3); Neutrophils # 5.5 K/mm3 (1.8-7.8); Neutrophils % 77.9 % (37.0-80.0); Platelet Count 191 K/mm3 (142-424); Red Blood Count 4.76 M/mm3 (4.60-6.20); Red Cell Distribution Width 13.4 % (11.5-17.5)
[2020-09-20 19:49] LABS: Chloride 104 mmol/L (98-107); Sodium 139 mmol/L (136-145)
[2020-09-20 19:50] LABS: Potassium 3.9 mmoL/L (3.5-5.1)
[2020-09-20 19:52] LABS: Alanine Aminotransferase 26 U/L (12-78); Albumin Level 4.1 g/dl (3.5-5.0); Albumin/Globulin Ratio 1.6 (1.1-1.8); Alkaline Phosphatase 54 U/L (38-126); Anion Gap 11.9 mEq/L (5-15); Aspartate Amino Transferase 25 U/L (17-59); Bilirubin,Total 0.6 mg/dl (0.2-1.3); Blood Urea Nitrogen 13 mg/dl (9-20); Carbon Dioxide 27 mmol/L (22.0-30.0); Creatinine Clearance Estimated 202 mL/min (50-200); Estimated Glomerular Filt Rate 115 ml/min (>60); GFR (African American) 139 ML/MIN (>60); Globulin 2.6 g/dL (1.3-3.2); Total Protein,Serum 6.7 g/dl (6.3-8.2)
[2020-09-20 19:53] LABS: Calcium 8.9 mg/dl (8.4-10.2); Glucose 108 mg/dl (74-100)
[2020-09-20 20:25] LABS: C-Reactive Protein 0.5 mg/L (0-4)
--- NOTE | 2020-09-20 20:32 | HMH.EDGENADL ---
ED Disposition Clinical Impression: Flank pain Abdominal pain Qualifiers: Abdominal location: lower abdomen, unspecified Qualified Code(s): R10.30 - Lower abdominal pain, unspecified Hydrocele Qualifiers: Hydrocele type: unspecified Qualified Code(s): N43.3 - Hydrocele, unspecified Disposition: Home, Self-Care Condition on Discharge: Good Instructions: DI for Abdominal Pain-Adult, DI for Hydrocele-Adult Additional Instructions: Tylenol 3 as needed for pain. Call your primary care doctor in the morning for further care. Call Dr. Iniguez tomorrow as well. Additional instructions for CONTROLLED SUBSTANCES: You have been prescribed a medication that is a controlled substance. Controlled substances include pain medications known as opiates and sedative nerve medications known as benzodiazepines. Tramadol, fioricet, and gabapentin are also controlled substances. Some common opiates include: Codeine (such as Tylenol #3) Hydrocodone (Vicodin, Lortab, Lorcet, [place]) Oxycodone (Percocet, Percodan, Oxycodone, Oxy IR) Some common benzodiazepines include: Diazepam (Valium) Lorazepam (Ativan) Alprazolam (Xanax) Clonazepam (Klonopin) Oxazepam (Serax) All of these controlled substances are highly addictive and frequently abused. Misuse can and frequently does lead to addiction as well as overdose and . Medication should be stored in a locked cabinet or other secure storage unit. Do not store the medication in a motor vehicle. Short term supplies, 3 days or less, are prescribed because of the highly addictive nature of the medication. Any of the controlled substance medication NOT taken should be disposed of properly and NOT SAVED. The recommended method of disposing of unused medications is: Place the medicines in a sealable plastic bag. If the medicine is a solid, crush it or add water to dissolve it. Add something undesirable (cat litter, coffee grounds, etc.) Dispose of sealed bag in household trash Do not flush or pour unused medicines down a sink or drain. Controlled substances should not be shared, given away or sold. Because of the addictive nature and frequent abuse, these medications are sometimes stolen. These medications should be kept in a safe place where they cannot be stolen. Do not keep them in your car or purse. Lost or stolen prescriptions for controlled substances WILL NOT BE REFILLED in this emergency department, regardless of whether a police report was filed. Referrals: Keiry Tovar MD [Primary Care Provider] - - Critical Care Critical Care Time: No Attestation: On 09/20/20, the high probability of a clinically significant, sudden or life threatening deterioration of the following system(s) required my full and direct attention, intervention and personal management. The time I documented below is in addition to time spent performing reported procedures but includes the following listed in this critical care notation. Medical Decision Making - Venkat Inquiry Pt receiving controlled substance: Yes Venkat was queried for this patient: Yes Risks and benefits of using a controlled substance: were discussed with pt by me Vital Signs: 09/20/20 18:52 09/20/20 19:35 09/20/20 20:00 Temperature 98.5 F Temperature Source Oral Pulse Rate 79 61 Pulse Rate [Left Radial] 92 H Respiratory Rate 20 Blood Pressure 121/72 126/79 Blood Pressure [Right Arm] 116/75 Blood Pressure Mean [Right Arm] 88 Blood Pressure Source [Right Arm] Automatic Cuff Blood Pressure Position [Right Arm] Supine 02 Sat by Pulse Oximetry 98 99 100 Oxygen Delivery Method Room Air 09/20/20 21:09 09/20/20 21:30 Temperature Temperature Source Pulse Rate 70 72 Pulse Rate [Left Radial] Respiratory Rate Blood Pressure 129/75 122/73 Blood Pressure [Right Arm] Blood Pressure Mean [Right Arm] Blood Pressure Source [Right Arm] Blood Pressure Position [Right Arm] 02 Sat by
[2020-09-20 20:38] LABS: Procalcitonin 0.046 ng/mL (0.0-2.0)
[2020-09-20 20:42] LABS: Microscopic, Urine URINE MICROSCOPIC (MICROSCOPIC)
[2020-09-20 20:59] LABS: Erythrocyte Sedimentation Rate 12 mm/hr (0-20)
[2020-09-20 21:04] LABS: Appearance,Urine CLEAR (Clear); Bilirubin,Urine Negative (Negative); Blood, Urine Negative (Negative); Color,Urine YELLOW (Yellow); Glucose,Urine (UA) Negative (Negative); Ketones,Urine Negative (Negative); Leukocyte Esterase,Urine Negative (Negative); Nitrate,Urine Negative (Negative); Protein,Urine Negative (Negative); Urobilinogen,Urine 0.2 EU/dl (0.2)
--- NOTE | 2020-09-20 21:23 | CT_ITS ---
PROCEDURE INFORMATION: Exam: CT Abdomen And Pelvis With Contrast Exam date and time: 09/20/2020 9:23 PM Age: 59 years old Clinical indication: Abdominal pain; Right; Patient HX: RT flank and lower abdomen pain. Ultrasound tonight shows RT hydrocele; Additional info: Lower abdominal pain TECHNIQUE: Imaging protocol: Computed tomography of the abdomen and pelvis with contrast. Radiation optimization: All CT scans at this facility use at least one of these dose optimization techniques: automated exposure control; mA and/or kV adjustment per patient size (includes targeted exams where dose is matched to clinical indication); or iterative reconstruction. Contrast material: ISOVUE; Contrast volume: 75 ml; Contrast route: IV; COMPARISON: CT ABDOMEN PELVIS W CON 09/01/2019 3:32 PM FINDINGS: Liver: Normal. Gallbladder and bile ducts: Normal. Pancreas: Normal. Spleen: Normal. Adrenal glands: Normal. No mass. Kidneys and ureters: Normal. Stomach and bowel: Colonic diverticulosis. Appendix: No evidence of appendicitis. Intraperitoneal space: Unremarkable. No free air. No significant fluid collection. Vasculature: Unremarkable. No abdominal aortic aneurysm. Lymph nodes: Calcified left hilar and subcarinal lymph nodes, compatible with prior granulomatous disease. Urinary bladder: Unremarkable as visualized. Reproductive: Prostate gland is enlarged, measuring 5.4 cm in AP diameter. Large bilateral hydroceles. Bones/joints: Degenerative changes of the hips and sacroiliac joints. Multilevel thoracolumbar spine degenerative disc space narrowing and osteophyte formation. Soft tissues: Normal. IMPRESSION: 1. No acute intra-abdominal or intrapelvic abnormality. 2. Large bilateral hydroceles.
--- NOTE | 2020-09-20 22:05 | PC.NURSE ---
pt back in room from radiology.
== END 2020-09-20 23:01 | disposition home or self-care (01) ==
PROVIDERS: Emergency Medicine; Emergency Provider Emergency Medicine; PCP Family Medicine
DX: R10.30 Lower abdominal pain, unspecified (principal); N43.3 Hydrocele, unspecified; N40.0 Benign prostatic hyperplasia without lower urinary tract symptoms; E78.5 Hyperlipidemia, unspecified; I10 Essential (primary) hypertension; Z79.899 Other long term (current) drug therapy
CPT/HCPCS: 74177; 76870; 80053; 81001; 84145; 85025; 85651; 86140; 96365; 96375; 99283; J2405; Q9967

== ENCOUNTER → 2020-09-26 15:16 | Outpatient (CLI) | payer BC, SELFPAY ==
--- NOTE | 2020-09-26 15:20 | XR_ITS ---
PROCEDURE: XR LUMBAR SPINE MIN 4V CLINICAL INDICATION: ACUTE RT SIDED LOW BACK PAIN W/O SCIATICA COMPARISON: CR SPLUMBLM XR lumbar spine 2-3V from 06/20/2017 FINDINGS: There is normal alignment. There is multilevel degenerative disc disease from T12-S1 with prominent anterior osteophytes. No acute fracture or dislocation is evident. No lytic or blastic change. Overall no significant change from 06/20/2017. Left lateral osteophytes are present at L1-L2 and L2-L3. IMPRESSION: Multilevel degenerative disc disease with anterior and lateral osteophytes overall not significantly changed. Dictated by: Jens Riggs MD 09/26/2020 15:58 Jens Riggs MD in [facility] 09/26/2020 15:58
== END ==
PROVIDERS: PCP Family Medicine; Visit Provider Family Medicine
DX: R10.31 Right lower quadrant pain (principal); M54.5 Low back pain
CPT/HCPCS: 72110

== ENCOUNTER → 2020-10-04 10:27 | Outpatient (CLI) | payer BC, SELFPAY ==
--- NOTE | 2020-10-04 10:30 | US_ITS ---
PROCEDURE: US KIDNEY CLINICAL INDICATION: ACUTE RT SIDED LOW BACK PAIN W/O SCIATICA COMPARISON: No exams were available for comparison FINDINGS: The right kidney measures 12.7 x 5.4 by 7.7 cm and the cortical thickness is 1.5 cm. The right kidney appears sonographically normal with normal vascularity. The spleen appears normal. The left kidney measures 13.3 x 5.6 by 6.7 cm with a cortical thickness of 1.3 cm and the left kidney appears sonographically normal as well. There is normal vascularity. IMPRESSION: Normal ultrasound of the bilateral kidneys Dictated by: Dr. Lucian Ram MD 10/04/2020 11:51 Dr. Lucian Ram MD in [facility] 10/04/2020 11:51
--- NOTE | 2020-10-04 10:30 | US_ITS ---
PROCEDURE: US URINARY BLADDER CLINICAL INDICATION: RT LOWER QUAD ABD PAIN COMPARISON: No exams were available for comparison FINDINGS: The pre void urinary bladder measures 9.7 x 7.0 x 8.8 cm with estimated volume of 311 mL. There is a mass at the base of the urinary bladder projecting into the lumen measuring 5.3 by 4.8 x 5.1 cm. The outline of the masses fairly well-defined and I suspect this represents a markedly enlarged prostate. A primary bladder tumor is a possibility but I definitely favor enlarged prostate. The postvoid bladder measures 3.7 x 6.7 x 3.3 cm with an estimated volume of 42 mL. There is mild uniform thickening of the bladder wall. IMPRESSION: [id number] postvoid residual with what is most likely a markedly enlarged prostate resulting in mass effect at the base of the urinary bladder Dictated by: Dr. Lucian Ram MD 10/04/2020 14:22 Dr. Lucian Ram MD in [facility] 10/04/2020 14:22
== END ==
PROVIDERS: PCP Family Medicine; Visit Provider Family Medicine
DX: R10.31 Right lower quadrant pain (principal); M54.5 Low back pain
CPT/HCPCS: 76770; 76857

== ENCOUNTER → 2020-12-14 10:54 | Outpatient (CLI) | payer BC, SELFPAY ==
--- NOTE | 2020-12-14 | CA_ITS ---
APPROVED REPORT Exam: Exercise Treadmill Technologist: Lisa Mcclendon, Ht: 6 ft 0 in Wt: 281 lbs BSA: 2.46 m2 HR: 85 bpm BP: 119/81 mmHg Medical History Medications: Aspirin,,,,, Terazosin,,,,, DicyCLOMINE,,,,, Finasteride,,,,, Levofloxacin,,,,, Lisinporil,,,,, Stress Test Details Test: Manual Treadmill HR Resting HR: 94 bpm Max Heart Rate (APMHR): 159.285209 bpm Max HR Achieved: 155 bpm Target HR (85% APMHR): 135.669047 bpm % of APMHR: 97.48 Recovery HR: 111 bpm BP Resting BP: 114/84 mmHg Max BP: 174/76 mmHg Recovery BP: 137.0/79.0 mmHg ECG Resting ECG: NSR, normal Clinical Exercise duration: 05:30 min Highest Stage Achieved: Exercise capacity: 7.0 METs Stress ECG Conclusion Exercised a total of 5:30 on Aric Protocol for 4 mins then manual protocol to completion. Max HR: 155 % of PM: 97% Max BP: 174/76 METs: 7.0 Test Stopped due to: SOA, Fatigue Symptoms: No CP. Arrhythmias/Ectopy: Occ fusion beat. ST-T Changes: Normal ST response to exercise. Conclusion: Normal GXT. Myoview images reported separately. Electronically signed by : Fred Neil MD 12/14/2020 15:10:07
--- NOTE | 2020-12-14 11:01 | NM_ITS ---
APPROVED REPORT Exam: Nuclear Stress Test Indication: Chest pain, Fatigue, HTN Patient Location: Outpatient Stress Tech: Emma Burgess [place] Tech:Kalli RaygozaVENKAT RT(R)(N) Ht: 6 ft 0 in Wt: 280 lbs HR: 85 bpm BP: 119/81 mmHg BSA: 2.46 m2 History: Chest pain, Fatigue, HTN Procedure: Patient exercised on Aric protocol 5:30 minutes and sec, resting heart rate 85 bpm, resting blood pressure 119/81 mmHg, with exercise maximum heart rate achived was 155 bpm which is 97 % of the maximum predicted heart rate and blood pressure was 174/76 mmHg. Test was stopped due to SOA and fatigue. Patient denied any complaint of chest pain. Patient has Adequate exercise capacity, achieved 7.0 METs of workload on treadmill, the blood pressure response to exercise was Adequate. Electrocardiogram Resting electrocardiogram showed sinus rhythm, with exercise there is less than 1.[address] segment depression noted from the baseline EKG. The EKG portion of the exercise Myoview is negative for ischemia. Cardiac Stress and Resting SPECT Images: Cardiac Stress and Resting SPECT images were obtained using technetium 99m Myoview 31.9 mCi stress and 10.42 mCi at rest. Gated SPECT for analysis of segmental wall motion and calculation of the ejection fraction also done. Prone images were also obtained. Cardiac stress and resting SPECT images show uniform myocardial activity without segmental perfusion abnormality, computer derived ejection fraction is 54% with no regional wall motion abnormality, right ventricle is normal size and contractility. Conclusion: 1. The EKG portion of the exercise Myoview is negative for ischemia, patient has adequate exercise capacity achieved 7 mets of workload on treadmill, the blood pressure response to exercise was adequate, there was no exercise-induced chest discomfort. 2. No scintigraphic evidence of reversible ischemia seen, compared right ejection fraction of 54% with no regional wall motion abnormality, right ventricle is normal size and contractility. 3. Normal exercise Myoview study. Electronically signed by : Fred Neil MD 12/14/2020 16:23:49
== END ==
PROVIDERS: PCP Family Medicine; Visit Provider Family Medicine
DX: R07.9 Chest pain, unspecified (principal)
CPT/HCPCS: 78452; 93017; A9502

== ENCOUNTER → 2022-03-04 11:01 | Outpatient (CLI) | payer BC, SELFPAY ==
--- NOTE | 2022-03-04 11:06 | XR_ITS ---
FINAL REPORT CLINICAL HISTORY: SHOULDER PAIN FINDINGS: RIGHT SHOULDER: 3 views of the right shoulder were obtained. There is no acute fracture or dislocation. There is mild AC joint degenerative change. There are moderate degenerative changes the glenohumeral joint. There is a calcification in the region of the greater tuberosity. Calcific tendinitis cannot be excluded. IMPRESSION: Mild and moderate degenerative changes. Reviewed, Interpreted and Dictated by Maco Bernabe III, MD Transcribed by Tim Mccoy Authenticated and [facility]
== END ==
PROVIDERS: PCP Family Medicine; Visit Provider Nurse Practitioner Family
DX: M25.511 Pain in right shoulder (principal)
CPT/HCPCS: 73030

== ENCOUNTER → 2022-09-03 11:15 | Outpatient (CLI) | payer BC, SELFPAY ==
--- NOTE | 2022-09-03 11:23 | XR_ITS ---
FINAL REPORT CLINICAL HISTORY: HIP PAIN M25.559 Rt hip pain x 2 mos radiating down to knee, worsened recently. NKT. FINDINGS: Right hip Three views were obtained. There is no acute fracture or dislocation. There is moderate to advanced hip joint space narrowing. There is subchondral sclerosis and osteophyte formation. No soft tissue abnormality is identified. IMPRESSION: Moderate to advanced changes of osteoarthritis. Reviewed, Interpreted and Dictated by Saurav Escobar MD Transcribed by Eilsabeth Merritt Authenticated and [facility]
== END ==
PROVIDERS: PCP Family Medicine; Visit Provider Nurse Practitioner Family
DX: M25.551 Pain in right hip (principal)
CPT/HCPCS: 73502

== ENCOUNTER 2022-10-11 15:00 | Outpatient (RCR) | payer BC, SELFPAY ==
--- NOTE | 2022-10-11 15:48 | [facility].RHREAS ---
Rehab Reassessment Rehab OP Re-assessment Start: 09/13/22 15:29 Freq: Status: Active Protocol: Document 10/11/22 14:49 JOSEPHINE (Rec: 10/11/22 15:47 JOSEPHINE [id number]) E-signed By Álvaro Vasquez OT Rehab Re-assessment Subjective Subjective The shoulder is still pretty painful. Objective Objective Notes Pt continues to attend therapy sessions weekly. Each session, pt engages in R shoulder AROM, AAROM, and strengthening exercises. PROM manual stretching to right shoulder in flexion, abduction , ER, and IR is also provided each session. Pt receives modalities in order to decrease pain/inflammation. Assessment Progress Assessment Slower Than Expected Assessment Notes Pt continues to report 10/10 pain at worst. Pt continues to work fulltime. Pt has not had a recent x-ray or had a MRI. Pt continues to demonstrate significant decline in AROM at right shoulder. Minimal progress has been made since initial evaluation. Therapist recommends he returns to doctor for possible referral to ortho and/or MRI. Current R shoulder AROM Flex: 85 degrees Abd: 55 degrees ER: 25 degrees IR: 40 degrees Patient goals met N/A Goals Not Met See below Revised Goals ST-5 LT-5 Plan Plan Continue with OT plan of care at this time. Frequency of Therapy 1-2x's Duration of therapy 4 weeks Time and Billing Re-Eval Time 11 Re-Eval Billing Units 1 PHYSICIAN CERTIFICATION: I certify the specified therapy services for Franco Bernardo are required, authorized, and reviewed every 30 days.
== END 2022-10-11 15:05 | disposition home or self-care (01) ==
LOC: OT 15:00
PROVIDERS: PCP Family Medicine; Visit Provider Nurse Practitioner Family
DX: M25.511 Pain in right shoulder (principal)
CPT/HCPCS: 97010; 97014; 97110; 97140; 97164; 97166; G0283

== ENCOUNTER 2023-01-24 10:00 | Outpatient (RCR) | payer BC, SELFPAY | END 2023-01-24 11:20 | disposition home or self-care (01) | LOC: PT 10:00 | PROVIDERS: Visit Provider Orthopaedic Surgery | DX: M16.11 Unilateral primary osteoarthritis, right hip (principal); Z98.890 Other specified postprocedural states | CPT/HCPCS: 97010; 97014; 97016; 97110; 97112; 97116; 97140; 97163; 97530; 97760; G0283 ==

== ENCOUNTER → 2023-02-13 08:00 | Outpatient (CLI) | payer BC, SELFPAY ==
--- NOTE | 2023-02-13 | CA_ITS ---
APPROVED REPORT EXAM: Comprehensive 2D, Doppler, and color-flow Echocardiogram Mine Boss: Jennifer Johns, RCS, RVS Ht: 6 ft 0 in Wt: 300lbs BSA: 2.53 BP: 141/85 mmHg Indications: Murmur, Obesity, Ex-smoker, WOLFE, Fatigue 2D Dimensions IVSd 1.10 cm M: 0.6-1.2 LVEF (Visual) 63.40 % PWd 1.21 cm M: 0.6 - 1.2 LA Volume 64.50 mL LVDd 5.41 cm M: 4.2 - 5.9 LA Volume Index 25.49 mL/m2 (M/F) 16-34 LVDs 3.53 cm M: 2.5 - 4.0 Left Atrium 2.76 cm M: 3.0 - 4.0 LVOT 2.40 cm (M/F) 1.5-2.5 M-Mode Dimensions RVDd 2.66 cm (0.9-2.6) LA Diam 3.87 cm (1.9-4.0) LVDd 5.60 cm (3.5-5.7) LVDs 4.23 cm (3.5-5.7) IVSd 1.01 cm (0.6-1.1) PWd 0.89 cm (0.6-1.1) EF (Teich) 60.60% EPSs 0.44 cm FS 33.10% EDV (Teich) 202.60 mL TAPSE 2.69 (<1.7) ESV (Teich) 79.90 mL LV Diastology E Decel Time 83 (160-240 msec) E/A Ratio 1.98 MED A' 10.40 cm/s LAT A' 10.20 cm/s Aortic Valve PIETER Index 0.49 cm2/m2 AoV Peak Gabriele. 263.0 (50-130 cm/s) AO Peak GR. 27.70 mmHg AO Mean GR. 15.80 (<5 mmHg) AO VTI 48.4 (18-25 cm) PIETER (VTI) 1.28 (2.5-4.5 cm2) Mitral Valve MV A Velocity 42.0 (40-130 cm/s) E/A Ratio 1.98 Pulmonary Valve OK End VMAX 165.0 cm/s Left Ventricle The left ventricle is normal size. The left ventricular systolic function is normal. The left ventricular ejection fraction is within the normal range. There is increased LV wall thickness. There is normal LV segmental wall motion. The left ventricular diastolic function is normal. LVEF is 55%. Right Ventricle The right ventricle is normal size. The right ventricular systolic function is normal. Atria The left atrium size is normal. The right atrium size is normal. There is no Doppler evidence of interatrial shunt. Aortic Valve The aortic valve is moderately thickened. There is restricted mobility of the aortic valve leaflets. Mild aortic stenosis. PIETER by continuity equation is 1.6 cm??? (LVOT 2.4 cm, AV VTI 50 cm, LVOT 17.5 cm). Mean AV gradient is 17 mmHg. Max AV gradient is 28 mmHg. Peak velocity 2.6 m/s. Mild aortic regurgitation. Mitral Valve The mitral valve leaflets are mildly thickened. No evidence of mitral valve stenosis. Trace mitral regurgitation. Tricuspid Valve The tricuspid valve leaflets are thin and pliable. Mild tricuspid regurgitation. RVSP is normal. Pulmonic Valve The pulmonary valve is normal in structure. Trace pulmonic regurgitation. Great Vessels The aortic root is normal in size. The ascending aorta is normal in size. IVC is normal in size and collapses >50% with inspiration. Pericardium There is no pericardial effusion. Other Information Study Quality: Technically Difficult Conclusion This is a technically difficult study due to poor acoustic windows. Normal biventricular systolic function. Mild AI, mild TR. Mild (PIETER by continuity equation is 1.6 cm??? (LVOT 2.4 cm, AV VTI 50 cm, LVOT 17.5 cm). Mean AV gradient is 17 mmHg. Max AV gradient is 28 mmHg. Peak velocity 2.6 m/s). Electronically signed by : Francie Berry MD 02/19/2023 12:09:16
== END ==
PROVIDERS: Visit Provider Nurse Practitioner Family
DX: R01.1 Cardiac murmur, unspecified (principal)
CPT/HCPCS: 93306

== ENCOUNTER 2024-03-12 12:41 | Outpatient (CLI) | payer BC, SELFPAY ==
--- NOTE | 2024-03-12 | CA_ITS ---
APPROVED REPORT EXAM: Comprehensive 2D, Doppler, and color-flow Echocardiogram Director Trial: CHRISTIAN Berg, RVS Ht: 6 ft 0 in Wt: 300lbs BSA: 2.53 BP: 141/85 mmHg Indications: Murmur, HTN, WOLFE Echo Enhancing Agent Comments: Extremely limited windows due to body habitus and jaymie impedence, No IV access 2D Dimensions Left Atrium 2.68 cm M: 3.0 - 4.0 LA Volume 88.10 mL Ascending Aorta 4.11 cm M: 2.6 - 3.4 LA Volume Index 34.153244 mL/m2 (M/F) 16-34 M-Mode Dimensions RVDd 2.91 cm (0.9-2.6) LA Diam 2.43 cm (1.9-4.0) LVDd 5.45 cm (3.5-5.7) LVDs 3.80 cm (3.5-5.7) IVSd 1.31 cm (0.6-1.1) PWd 1.55 cm (0.6-1.1) EF (Teich) 57.10% EPSs 0.47 cm FS 30.30% EDV (Teich) 144.40 mL TAPSE 2.07 (<1.7) ESV (Teich) 62.00 mL LV Diastology E Decel Time 123 (160-240 msec) E/A Ratio 1.81 MED A' 8.30 cm/s LAT A' 11.60 cm/s Aortic Valve PIETER Index 0.39 cm2/m2 AoV Peak Gabriele. 245.0 (50-130 cm/s) AO Peak GR. 24.00 mmHg AO Mean GR. 12.80 (<5 mmHg) AO VTI 48.1 (18-25 cm) PIETER (VTI) 1.02 (2.5-4.5 cm2) Mitral Valve MV A Velocity 42.0 (40-130 cm/s) E/A Ratio 1.81 Left Ventricle The left ventricle is normal size. The left ventricular systolic function is normal. The left ventricular ejection fraction is within the normal range. There is normal left ventricular wall thickness. There is normal LV segmental wall motion. The left ventricular diastolic function is normal. LVEF is 55%. Right Ventricle The right ventricle is normal size. The right ventricular systolic function is normal. Atria The left atrium is mildly dilated. The right atrium size is normal. There is no Doppler evidence of interatrial shunt. Aortic Valve The aortic valve is mildly thickened. Mild aortic stenosis is present. Peak velocity 2.3 m/s. Mean AV gradient 13 mmHg. Max AV gradient 25 mmHg. PIETER by continuity equation is 1.6 cm???. No aortic regurgitation is present. Mitral Valve The mitral valve leaflets are mildly thickened. No evidence of mitral valve stenosis. Trace mitral regurgitation. Tricuspid Valve Tricuspid valve is grossly normal in structure and function. Trace tricuspid regurgitation. There is insufficient TR jet to estimate RVSP. Pulmonic Valve The pulmonary valve is normal in structure. Mild pulmonic regurgitation. Great Vessels The aortic root is normal in size. The ascending aorta is mildly dilated, measuring 4.1 cm in diameter. IVC is normal in size and collapses >50% with inspiration. Pericardium There is no pericardial effusion. Other Information Study Quality: Technically Difficult Conclusion Technically difficult study due to poor acoustic windows. Normal biventricular systolic function. Mild LA dilation. Mild (peak velocity 2.3 m/s. Mean AV gradient 13 mmHg. Max AV gradient 25 mmHg. PIETER by continuity equation is 1.6 cm???). Mild PI. The ascending aorta is mildly dilated, measuring 4.1 cm in diameter. Electronically signed by : Francie Berry MD 03/29/2024 10:26:55
== END 2024-03-12 23:59 | disposition home or self-care (01) ==
LOC: RT 12:42
PROVIDERS: PCP Nurse Practitioner Family; Visit Provider Nurse Practitioner Family
DX: I35.0 Nonrheumatic aortic (valve) stenosis (principal); I37.1 Nonrheumatic pulmonary valve insufficiency; I51.7 Cardiomegaly; R01.1 Cardiac murmur, unspecified
CPT/HCPCS: 93306